=== PATIENT | female | born 1985 | race Caucasian/White ===

== ENCOUNTER 2018-10-03 08:05 | Inpatient (IN) | payer MEDICAID ==
[~2018-10-03] VITALS: Ht 154.9 cm; Wt 63.5 kg
[~2018-10-03 08:05] MED LIST: HYDR-4001 PO
[2018-10-03] MEDS ORDERED: LACTATED RINGERS 1,000 ML IV SCH (08:45)
[2018-10-03] MEDS ORDERED: CEFOXITIN SODIUM 2 G in DEXT 5% WATER 100 ML IV STA (08:53)
[2018-10-03 09:31] LABS: UCG SCREEN NEGATIVE
[2018-10-03] MEDS ORDERED: NORMAL SALINE 0.9% 10 ML SYR ONE (10:08)
[2018-10-03] MEDS ORDERED: BUPIVACAINE HCL/PF 0.5% (5MG/ML) 10ML ONE (10:08)
[2018-10-03] MEDS ORDERED: LIDOCAINE HCL 1% 20ML VIAL (Pyxis) INJ ONE (10:08)
[2018-10-03] MEDS ORDERED: SKIN ADHESIVE 0.7 GM EA TOP ONE (10:08)
[2018-10-03] MEDS ORDERED: BACITRACIN 50,000 UNITS/VIAL ONE (10:08)
[2018-10-03] MEDS ORDERED: INDOCYANINE GREEN 25 MG VIAL IV ONE (10:09)
[2018-10-03] MEDS ORDERED: MIDAZOLAM HCL 2 MG/2 ML VIAL ONE (10:23)
[2018-10-03] MEDS ORDERED: PROPOFOL 200MG/20ML VIAL IV ONE (10:23)
[2018-10-03] MEDS ORDERED: FENTANYL CITRATE/PF 50MCG/ML 2ML VIAL ONE ×2 (10:23→12:12)
[2018-10-03] MEDS ORDERED: ONDANSETRON HCL 4MG/2ML INJ IV PRN ×2 (10:30→12:45)
[2018-10-03] MEDS ORDERED: HYDROMORPHONE HCL/PF 2MG/ML CPJ IV PRN (10:30)
[2018-10-03] MEDS ORDERED: ROCURONIUM BROMIDE 10MG/ML VIAL 5ML IV ONE (10:31)
[2018-10-03] MEDS ORDERED: SUCCINYLCHOLINE CHLORIDE 200MG/10ML IV ONE (10:33)
[2018-10-03] MEDS ORDERED: DEXAMETHASONE 4MG/ML 1ML VIAL ONE (10:50)
[2018-10-03] MEDS ORDERED: GLYCOPYRROLATE 0.2 MG/ML 2ML VIAL ONE (11:47)
[2018-10-03] MEDS ORDERED: KETOROLAC 30MG/ML VIAL IV SCH (12:00)
[2018-10-03] MEDS ORDERED: KETOROLAC 30MG/ML VIAL ONE (12:02)
[2018-10-03] MEDS ORDERED: FLUMAZENIL 0.1 MG/ML 5ML VIAL IV ONE (12:20)
[2018-10-03] MEDS: SODIUM CHLORIDE 0.45% 1,000 ML IV SCH ×2 (13:00→21:37)
[2018-10-03 14:00] VITALS: BP 107/69
[2018-10-03 16:17] VITALS: BP 105/62
[2018-10-03] MEDS: KETOROLAC 15MG/ML VIAL IV SCH ×2 (17:01→21:37)
[2018-10-03 20:00] VITALS: BP 108/61
[2018-10-04] VITALS: BP 123/70
[2018-10-04 04:00] VITALS: BP 104/54
[2018-10-04] MEDS: KETOROLAC 15MG/ML VIAL IV SCH (04:57)
[2018-10-04 08:00] VITALS: BP 108/60
[2018-10-04 10:29] VITALS: BP 108/60
== END 2018-10-04 11:15 | disposition home or self-care (01) | DRG 263 ==
LOC: OR 08:05 → 6EST 08:06
PROVIDERS: ADMIT Specialist; ATTEND Specialist
PROC: 0FT44ZZ Resection of Gallbladder, Percutaneous Endoscopic Approach (ICD-10-PCS; principal; 2018-10-03)
DX: K80.20 Calculus of gallbladder without cholecystitis without obstruction (principal); Z79.899 Other long term (current) drug therapy; Z98.891 History of uterine scar from previous surgery
CPT/HCPCS: 81025; 88304; J0330; J0694; J1100; J1885; J2250; J2405; J2704; J3010; J3490; J7060; Q9957